=== PATIENT | female | born 1955 | race Caucasian/White ===

== ENCOUNTER 2017-06-21 08:08 | Outpatient (CLI) | payer OTHER | END 2017-06-21 08:09 | disposition home or self-care (01) | LOC: BICMAMMO 08:08 | PROVIDERS: ATTEND Family Medicine | DX: Z12.31 Encounter for screening mammogram for malignant neoplasm of breast (principal) | CPT/HCPCS: 77063; 77067 ==

== ENCOUNTER 2018-09-23 10:34 | Outpatient (CLI) | payer OTHER ==
--- NOTE | 2018-09-23 11:16 | MMO ---
Bilateral MAMMO Bilat Screen [facility]. CLINICAL HISTORY: Patient is 63 years old and is seen for screening. The patient has no family history of breast cancer. The patient has no personal history of cancer. VIEWS: The views performed were: bilateral craniocaudal with tomosynthesis and bilateral mediolateral oblique with tomosynthesis. FILMS COMPARED: The present examination has been compared to a prior imaging study performed at [facility] on 06/21/2017. MAMMOGRAM FINDINGS: There are scattered fibroglandular densities. There are calcifications with grouped or clustered distribution seen in the posterior central region of the left breast. In the right breast, there are no suspicious masses, calcifications or areas of architectural distortion. IMPRESSION: CALCIFICATIONS IN THE LEFT BREAST REQUIRE ADDITIONAL EVALUATION. RECOMMEND DIAGNOSTIC MAMMOGRAM. THE RESULTS OF THIS EXAM WERE SENT TO THE PATIENT. ACR BI-RADS Category 0 - Incomplete: Need additional imaging evaluation. [facility] will notify the patient of the need for additional imaging services. MAMMOGRAPHY NOTE: 1. A negative mammogram report should not delay a biopsy if a dominant of clinically suspicious mass is present. 2. Approximately 10% to 15% of breast cancers are not detected by mammography. 3. Adenosis and dense breasts may obscure an underlying neoplasm.
== END 2018-09-23 10:35 | disposition home or self-care (01) ==
LOC: BICMAMMO 10:34
PROVIDERS: ATTEND Family Medicine
DX: Z12.31 Encounter for screening mammogram for malignant neoplasm of breast (principal); R92.1 Mammographic calcification found on diagnostic imaging of breast
CPT/HCPCS: 77063; 77067

== ENCOUNTER 2018-10-01 09:48 | Outpatient (CLI) | payer OTHER ==
--- NOTE | 2018-10-01 10:34 | MMO ---
Left Breast MAMMO Unilat Diag [facility]. CLINICAL HISTORY: Patient is 63 years old and is seen for diagnostic exam. The patient has no family history of breast cancer. The patient has no personal history of cancer. VIEWS: The views performed were: left craniocaudal spot compression magnification; left mediolateral oblique spot compression magnification; and left mediolateral with tomosynthesis. FILMS COMPARED: The present examination has been compared to prior imaging studies performed at [facility] on 06/21/2017 and 09/23/2018. MAMMOGRAM FINDINGS: There are scattered fibroglandular densities. There are calcifications with grouped or clustered distribution seen in the posterior central region of the left breast. These are probably stable with respect to the prior. IMPRESSION: CALCIFICATIONS IN THE LEFT BREAST ARE PROBABLY BENIGN. FOLLOW-UP IN 6 MONTHS IS RECOMMENDED. THE RESULTS OF THIS EXAM WERE SENT TO THE PATIENT. ACR BI-RADS Category 3 - Probably benign finding - short interval follow-up suggested. [facility] will notify the patient of the need for additional imaging services. MAMMOGRAPHY NOTE: 1. A negative mammogram report should not delay a biopsy if a dominant of clinically suspicious mass is present. 2. Approximately 10% to 15% of breast cancers are not detected by mammography. 3. Adenosis and dense breasts may obscure an underlying neoplasm.
== END 2018-10-01 09:49 | disposition home or self-care (01) ==
LOC: BICMAMMO 09:48
PROVIDERS: ATTEND Family Medicine
DX: R92.1 Mammographic calcification found on diagnostic imaging of breast (principal)
CPT/HCPCS: G0279

== ENCOUNTER 2019-04-17 09:17 | Outpatient (CLI) | payer OTHER, MEDICARE ==
--- NOTE | 2019-04-17 10:03 | MMO ---
Left Breast MAMMO Unilat Diag [facility]. CLINICAL HISTORY: Patient is 64 years old and is seen for follow-up at short-interval from prior study. The patient has no family history of breast cancer. The patient has no personal history of cancer. VIEWS: The views performed were: left craniocaudal spot compression magnification; left mediolateral spot compression magnification; and left mediolateral with tomosynthesis. FILMS COMPARED: The present examination has been compared to prior imaging studies performed at [facility] on 06/21/2017, 09/23/2018 and 10/01/2018. This study has been interpreted with the assistance of computer-aided detection. MAMMOGRAM FINDINGS: There are scattered fibroglandular densities. There are stable calcifications seen in the posterior region of the left breast at 6 o'clock. IMPRESSION: STABLE CALCIFICATIONS IN THE LEFT BREAST ARE PROBABLY BENIGN. FOLLOW-UP IN 6 MONTHS IS RECOMMENDED. THE RESULTS OF THIS EXAM WERE SENT TO THE PATIENT. ACR BI-RADS Category 3 - Probably benign finding - short interval follow-up suggested. [facility] will notify the patient of the need for additional imaging services. MAMMOGRAPHY NOTE: 1. A negative mammogram report should not delay a biopsy if a dominant of clinically suspicious mass is present. 2. Approximately 10% to 15% of breast cancers are not detected by mammography. 3. Adenosis and dense breasts may obscure an underlying neoplasm. Reported by: SHIMON NEVILLE MD Electonically Signed: [id number]
--- NOTE | 2019-04-17 11:22 | BD ---
DEXA BONE DENSITY: HISTORY: A 64-year-old postmenopausal female. Screening study. COMPARISON: None. FINDINGS: LUMBAR SPINE BMD (g/cm2) T-SCORE Z-SCORE L1 1.232 2.2 3.8 L2 1.307 2.5 4.3 L3 1.349 2.4 4.3 L4 1.318 2.3 4.2 TOTAL 1.306 2.4 4.1 FEMORAL NECK 0.740 -1.0 0.5 TOTAL 0.988 0.4 1.6 IMPRESSION: 1. Lumbar spine WHO classification normal. Fracture risk is not increased. 2. Femoral neck WHO classification normal. 3. Ten year fracture risk - FRAX not reported because all T-score or at or above -1.0. POS: OFF
== END 2019-04-17 09:18 | disposition home or self-care (01) ==
LOC: BICMAMMO 09:17
PROVIDERS: ATTEND Physician Assistant
DX: Z13.820 Encounter for screening for osteoporosis (principal); Z78.0 Asymptomatic menopausal state; R92.1 Mammographic calcification found on diagnostic imaging of breast
CPT/HCPCS: 77080; G0279

== ENCOUNTER 2019-10-15 08:15 | Outpatient (CLI) | payer MEDICARE, OTHER ==
--- NOTE | 2019-10-15 08:53 | MMO ---
Bilateral MAMMO Bilat Diag [facility]. CLINICAL HISTORY: Patient is 64 years old and is seen for diagnostic exam. The patient has no family history of breast cancer. The patient has no personal history of cancer. VIEWS: The views performed were: bilateral craniocaudal with tomosynthesis; bilateral mediolateral oblique with tomosynthesis; bilateral mediolateral with tomosynthesis; left craniocaudal spot compression magnification; and left mediolateral spot compression magnification. FILMS COMPARED: The present examination has been compared to prior imaging studies performed at [facility] on 06/21/2017, 09/23/2018, 10/01/2018 and 04/17/2019. This study has been interpreted with the assistance of computer-aided detection. MAMMOGRAM FINDINGS: There are scattered fibroglandular densities. There are stable calcifications seen in the inner region of the left breast. In the right breast, there are no suspicious masses, calcifications or areas of architectural distortion. IMPRESSION: STABLE CALCIFICATIONS IN THE LEFT BREAST ARE PROBABLY BENIGN. FOLLOW-UP IN 1 YEAR IS RECOMMENDED. THE RESULTS OF THIS EXAM WERE SENT TO THE PATIENT. ACR BI-RADS Category 3 - Probably benign finding - short interval follow-up suggested. [facility] will notify the patient of the need for additional imaging services. MAMMOGRAPHY NOTE: 1. A negative mammogram report should not delay a biopsy if a dominant of clinically suspicious mass is present. 2. Approximately 10% to 15% of breast cancers are not detected by mammography. 3. Adenosis and dense breasts may obscure an underlying neoplasm. Reported by: SHIMON NEVILLE MD Electonically Signed: [id number]
== END 2019-10-15 08:16 | disposition home or self-care (01) ==
LOC: BICMAMMO 08:15
PROVIDERS: ATTEND Physician Assistant
DX: R92.1 Mammographic calcification found on diagnostic imaging of breast (principal)
CPT/HCPCS: 77066; G0279

== ENCOUNTER 2022-01-24 08:01 | Outpatient (CLI) | payer MEDICARE | END 2022-01-24 08:02 | disposition home or self-care (01) | LOC: BICMAMMO 08:01 | PROVIDERS: ATTEND Nurse Practitioner Family | DX: R92.1 Mammographic calcification found on diagnostic imaging of breast (principal); R92.8 Other abnormal and inconclusive findings on diagnostic imaging of breast | CPT/HCPCS: 77066; G0279 ==